=== PATIENT | male | born 1970 | race Caucasian/White ===

== ENCOUNTER 2020-12-13 01:19 | Inpatient (IN) | payer OTHER ==
[2020-12-13 02:03] LABS: Basophils % (A) 1 %; Eosinophils % (A) 1 %; HCT 43.2 % (39.0-53.0); HGB 15.5 gm/dL (13.0-17.5); Hyperchromasia Slight; Lymphocytes # (A) 0.6 k/uL (1.0-4.8); Lymphocytes % (A) 12 %; MCH 29.4 pg (25.0-35.0); MCHC 35.8 g/dL (31.0-37.0); Mean Platelet Volume 7.8; Monocytes # (A) 0.3 k/uL (0-1.0); Monocytes % (A) 5 %; Neutrophils # (A) 4.1 k/uL (1.3-7.7); Neutrophils % (A) 79 %; Platelet Count 200 k/uL (150-450); RBC 5.27 m/uL (4.30-5.90); WBC 5.1 k/uL (3.8-10.6)
[2020-12-13 02:12] LABS: INR 1.1 (<1.2); Partial Thromboplastin Time 26.9 sec (22.0-30.0); Prothrombin Time 11.2 sec (9.0-12.0)
[2020-12-13 02:25] LABS: ALT 51 U/L (4-49); AST 79 U/L (17-59); African American GFR (CKD) >90 (>60 ml/min/1.73 sqM); Alkaline Phosphatase 71 U/L (38-126); Anion Gap 12 mmol/L; Blood Urea Nitrogen 20 mg/dL (9-20); Carbon Dioxide 24 mmol/L (22-30); Chloride 97 mmol/L (98-107); Glucose 106 mg/dL (74-99); LDH 971 U/L (313-618); Magnesium 2.2 mg/dL (1.6-2.3); Non-African American GFR(CKD) >90 (>60 ml/min/1.73 sqM); Potassium 3.7 mmol/L (3.5-5.1); Sodium 133 mmol/L (137-145); Total Bilirubin 1.2 mg/dL (0.2-1.3); Total Protein 7.2 g/dL (6.3-8.2)
--- NOTE | 2020-12-13 02:29 | XR ---
EXAMINATION TYPE: XR chest 1V portable DATE OF EXAM: 12/13/2020 COMPARISON: NONE HISTORY: Pneumonia TECHNIQUE: 2 views FINDINGS: Portable exam shows some coarse predominantly interstitial infiltrate in both lungs. Exam l imited by patient's size. There is no definite heart failure. I see no pleural effusion. IMPRESSION: There is some mild pulmonary interstitial infiltrates.
--- NOTE | 2020-12-13 02:38 | ED ---
General Adult HPI - General Chief complaint: Upper Respiratory Infection Stated complaint: SOB Time Seen by Provider: 12/13/20 01:32 Source: patient, EMS Mode of arrival: EMS Limitations: no limitations - History of Present Illness Initial comments: Patient is a 50-year-old male with history of diabetes, hypertension, bilateral PEs, presenting to the emergency Department with complaints of worsening Covid infection. He states he is been having cold symptoms for the last 11 days. He states his sons also had an infection. He feels like he is getting worse and not better. He has been battling fevers over the past 3-4 days. He states he is feeling more shortness of breath with exertion, feels like his heart is racing at times. He does have history of bilateral PEs in 2018, he is on eliquis. He does admit to some mild nausea, some intermittent diarrhea as well. He states he feels like all he wants to do is lay in bed. His last dose of Ty lenol was a few hours ago. He has no history of asthma COPD. Denies any abdominal pain, no chest pain at this time. He has no further complaints. Upon arrival to the ER, he is 92-94% on room air, slightly tachycardia at 102, rest of vitals normal. - Related Data Home Medications Medication Instructions Recorded Confirmed Albuterol Sulfate [Ventolin HFA] 2 puff INHALATION RT-Q4H PRN 12/13/20 12/13/20 Apixaban [Eliquis] 5 mg PO BID 12/13/20 12/13/20 Bisoprolol Fumarate [Zebeta] 10 mg PO DAILY 12/13/20 12/13/20 Candesartan Cilexetil [Atacand] 32 mg PO DAILY 12/13/20 12/13/20 Empagliflozin/Metformin HCl 1 tab PO BID 12/13/20 12/13/20 [Synjardy Xr 25-1,000 mg Tablet] Fluticasone/Vilanterol [Breo 1 puff INHALATION RT-DAILY 12/13/20 12/13/20 Ellipta 200-25 Mcg INH] Furosemide [Lasix] 120 mg PO DAILY 12/13/20 12/13/20 Levothyroxine Sodium [Synthroid] 112 mcg PO DAILY 12/13/20 12/13/20 RABEprazole SODIUM 20 mg PO DAILY 12/13/20 12/13/20 Rosuvastatin [Crestor] 10 mg PO DAILY 12/13/20 12/13/20 Spironolactone 25 mg PO DAILY 12/13/20 12/13/20 Terazosin HCl 10 mg PO BID 12/13/20 12/13/20 Allergies Allergy/AdvReac Type Severity Reaction Status Date / Time No Known Allergies Allergy Verified 12/13/20 07:27 Review of Systems ROS Statement: Those systems with pertinent positive or pertinent negative responses have been documented in the HPI. ROS Other: All systems not noted in ROS Statement are negative. Past Medical History Past Medical History: Diabetes Mellitus, Hypertension, Pneumonia Additional Past Medical History / Comment(s): emboli History of Any Multi-Drug Resistant Organisms: None Reported Past Surgical History: Orthopedic Surgery Past Psychological History: No Psychological Hx Reported Smoking Status: Never smoker Past Alcohol Use History: Occasional Past Drug Use History: None Reported - Past Family History Father Family Medical History: Hyperlipidemia General Exam - General Exam Comments Initial Comments: GENERAL: Patient is well-developed and well-nourished. Patient is nontoxic and in no acute distress. HEAD: Atraumatic, normocephalic. EYES: Pupils equal round and reactive to light, extraocular movements intact, sclera anicteric, conjunctiva are normal. Eyelids were unremarkable. ENT: TMs normal, nares patent, oropharynx clear without exudates. Moist mucous membranes. NECK: Normal range of motion, supple without lymphadenopathy or JVD. LUNGS: Unlabored respirations. Breath sounds clear to auscultation bilaterally and equal. No wheezes rales or rhonchi. HEART: Tachycardia rate and rhythm without murmurs, rubs or gallops. ABDOMEN: Soft, nontender, normoactive bowel sounds. No guarding, no rebound. No masses appreciated. : Deferred MUSCULOSKELETAL: Normal extremities with adequate strength and normal range of motion, no pitting or edema. No clubbing or cyanosis. NEUROLOGICAL: Patient is alert and oriented x 3. Motor and sensory are also intact. Cranial nerves II through XII grossly intact. Symmetrical smile. Normal speech, normal gait. PSYCH: Normal mood, normal affect. SKIN: Warm, Dry, normal turgor, no rashes or lesions noted. Limitations: no limitations Course Vital Signs 12/13/20 12/13/20 12/13/20 01:21 03:22 04:17 Temperature 97.7 F 100.5 F H Pulse Rate 102 H 88 90 Respiratory 22 20 20 Rate Blood Pressure 121/82 110/78 107/80 O2 Sat by Pulse 94 L 98 94 L Oximetry 12/13/20 12/13/20 12/13/20 06:25 09:00 12:47 Temperature 99 F 98.0 F 98.7 F Pulse Rate 88 90 87 Respiratory 20 18 20 Rate Blood Pressure 106/65 121/81 116/80 O2 Sat by Pulse 95 96 94 L Oximetry EKG Findings - EKG Comments: EKG Findings:: A. fib with PVCs, no signs of acute ST segment elevation. Ventricular rate 98, QRS duration 94, QT 368. Medical Decision Making - Medical Decision Making Patient is a 50-year-old male with history of diabetes, hypertension, PEs, presenting for worsening shortness of breath over the last few days. He is currently on day 11 of having Covid. Oximetry on room air satting at 92-94%, is currently on 2 L. EKG today shows A. fib, he has no history of this. He states he recently had a full cardiac workup with no other abnormalities. Labs are showing a normal white count, lactic acid normal, LDH is 971, BNP is 284. X-ray as showing a bilateral mild pulmonary interstitial infiltrates. Patient will be admitted for new-onset A. fib, Covid hypoxia. Patient's accepted by Dr. Zarco, consult to pulmonology. Case discussed with Dr. Kaur. - Lab Data Result diagrams: 12/13/20 01:50 12/13/20 05:50 Lab Results 12/13/20 12/13/20 12/13/20 Range/Units 01:50 01:50 01:50 WBC 5.1 (3.8-10.6) k/uL RBC 5.27 (4.30-5.90) m/uL Hgb 15.5 (13.0-17.5) gm/dL Hct 43.2 (39.0-53.0) % MCV 82.0 (80.0-100.0) fL MCH 29.4 (25.0-35.0) pg MCHC 35.8 (31.0-37.0) g/dL RDW 14.0 (11.5-15.5) % Plt Count 200 (150-450) k/uL MPV 7.8 Neutrophils % 79 % Lymphocytes % 12 % Monocytes % 5 % Eosinophils % 1 % Basophils % 1 % Neutrophils # 4.1 (1.3-7.7) k/uL Lymphocytes # 0.6 L (1.0-4.8) k/uL Monocytes # 0.3 (0-1.0) k/uL Eosinophils # 0.0 (0-0.7) k/uL Basophils # 0.0 (0-0.2) k/uL Hyperchromasia Slight PT 11.2 (9.0-12.0) sec INR 1.1 (<1.2) APTT 26.9 (22.0-30.0) sec Sodium 133 L (137-145) mmol/L Potassium 3.7 (3.5-5.1) mmol/L Chloride 97 L (98-107) mmol/L Carbon Dioxide 24 (22-30) mmol/L Anion Gap 12 mmol/L BUN 20 (9-20) mg/dL Creatinine 0.78 (0.66-1.25) mg/dL Est GFR (CKD-EPI)AfAm >90 (>60 ml/min/1.73 sqM) Est GFR (CKD-EPI)NonAf >90 (>60 ml/min/1.73 sqM) Glucose 106 H (74-99) mg/dL Plasma Lactic Acid Talha (0.7-2.0) mmol/L Calcium 9.0 (8.4-10.2) mg/dL Magnesium 2.2 (1.6-2.3) mg/dL Total Bilirubin 1.2 (0.2-1.3) mg/dL AST 79 H (17-59) U/L ALT 51 H (4-49) U/L Alkaline Phosphatase 71 (38-126) U/L Lactate Dehydrogenase 971 H (313-618) U/L Troponin I (0.000-0.034) ng/mL C-Reactive Protein 4.1 H (<1.0) mg/dL NT-Pro-B Natriuret Pep pg/mL Total Protein 7.2 (6.3-8.2) g/dL Albumin 4.0 (3.5-5.0) g/dL 12/13/20 12/13/2012/13/21 Range/Units 01:50 01:50 02:51 WBC (3.8-10.6) k/uL RBC (4.30-5.90) m/uL Hgb (13.0-17.5) gm/dL Hct (39.0-53.0) % MCV (80.0-100.0) fL MCH (25.0-35.0) pg MCHC (31.0-37.0) g/dL RDW (11.5-15.5) % Plt Count (150-450) k/uL MPV Neutrophils % % Lymphocytes % % Monocytes % % Eosinophils % % Basophils % % Neutrophils # (1.3-7.7) k/uL Lymphocytes # (1.0-4.8) k/uL Monocytes # (0-1.0) k/uL Eosinophils # (0-0.7) k/uL Basophils # (0-0.2) k/uL Hyperchromasia PT (9.0-12.0) sec INR (<1.2) APTT (22.0-30.0) sec Sodium (137-145) mmol/L Potassium (3.5-5.1) mmol/L Chloride (98-107) mmol/L Carbon Dioxide (22-30) mmol/L Anion Gap mmol/L BUN (9-20) mg/dL Creatinine (0.66-1.25) mg/dL Est GFR (CKD-EPI)AfAm (>60 ml/min/1.73 sqM) Est GFR (CKD-EPI)NonAf (>60 ml/min/1.73 sqM) Glucose (74-99) mg/dL Plasma Lactic Acid Talha 1.2 (0.7-2.0) mmol/L Calcium (8.4-10.2) mg/dL Magnesium (1.6-2.3) mg/dL Total Bilirubin (0.2-1.3) mg/dL AST (17-59) U/L ALT (4-49) U/L Alkaline Phosphatase (38-126) U/L Lactate Dehydrogenase (313-618) U/L Troponin I 0.018 (0.000-0.034) ng/mL C-Reactive Protein (<1.0) mg/dL NT-Pro-B Natriuret Pep 284 pg/mL Total Protein (6.3-8.2) g/dL Albumin (3.5-5.0) g/dL Disposition Clinical Impression: COVID-19, Hypoxia, New onset a-fib Disposition: ADMITTED IP TO THIS HOSP Condition: Stable Decision Date: 12/13/20 Decision Time: 02:56
--- NOTE | 2020-12-13 02:54 | P.HPIM ---
History of Present Illness H&P Date: 12/13/20 The patient is a 50-year-old male with a PMH of bilateral PEs on Eliquis, obstructive sleep apnea on CPAP, spinal stenosis with left foot drop, type II DM, and hypertension who presented to the emergency room with complaints of worsening COVID-19 infection. Patient reports that his symptoms started at 11- 12 days ago and that him and his son were diagnosed roughly 7-8 days ago at a local [facility]. The patient is on vaccinated. He notes that his symptoms of decreased exercise tolerance, palpitations, myalgias, malaise, headaches and hypoxia gradually been worsening. The patient has a pulse oximeter at home and notes that his resting SpO2 levels have gone as low as 90%. He also states int ermittent fevers over the past 3-4 days. He further reports nausea and diarrhea. He denied chest pain, abdominal pain, weakness, numbness, tingling. In the emergency room, chest x-ray showed findings consistent with COVID-19 pneumonia. Laboratory evaluation was remarkable for sodium of 133, chloride 97, glucose 106, AST 79, ALT 51, and LDH 971. Review of systems: Pertinent positives and negatives as discussed in HPI, a complete review of systems was performed and all other systems are negative. Physical examination: General: non toxic, no distress, appears older than stated age, morbidly obese Derm: no unusual rashes/lesions no unusual ecchymoses, warm, dry Head: atraumatic, normocephalic, symmetric Eyes: EOMI, no lid lag, anicteric sclera, pupils equal round reactive to light ENT: Nose and ears atraumatic, no thrush, no pharyngeal erythema Neck: No thyromegaly, no cervical lymphadenopathy, trachea midline, supple Mouth: no lip lesion, mucus membranes moist Cardiovascular: S1S2 reg, no murmur, positive posterior tibial pulse bilateral, no edema, capillary refill less than 2 seconds Lungs: Diffuse bilateral rhonchi, no wheezing or rales appreciated , no accessory muscle use Abdominal: soft, nontender to palpation, no guarding, no appreciable organomegaly, normal bowel sounds Ext: no gross muscle atrophy, muscle strength 5 out of 5 in all 4 extremities grossly septic left lower extremity ankle strength 2 out of 5, no contractures, left ankle brace in place Neuro: CN II-XI grossly intact, light touch intact all 4 extremities, finger to nose within normal limits, Psych: Alert, oriented, appropriate affect Assessment/plan COVID-19 pneumonitis with acute hypoxic respiratory failure -Supplemental oxygen -Dexamethasone -Vitamin C, vitamin D, zinc -Pulmonary consult Abnormal LFTs -Likely due to COVID-19 -Monitor for now Chronic conditions: Obstructive sleep apnea, bilateral PEs, type II DM, hypertension -Continue with home CPAP -Lispro insulin sliding scale, blood glucose monitoring -Check A1c -Continue with home Eliquis DVT prophylaxis -Eliquis The patient is admitted with an anticipated greater than 2 midnight stay for evaluation of COVID-19 CODE STATUS: Full Code Discussed with: Patient Anticipated discharge date: 2-[address]: Home Past Medical History Past Medical History: Diabetes Mellitus, Hypertension, Pneumonia Additional Past Medical History / Comment(s): emboli History of Any Multi-Drug Resistant Organisms: None Reported Past Surgical History: Orthopedic Surgery Past Psychological History: No Psychological Hx Reported Smoking Status: Never smoker Past Alcohol Use History: Occasional Past Drug Use History: None Reported - Past Family History Father Family Medical History: Hyperlipidemia Medications and Allergies Allergies Allergy/AdvReac Type Severity Reaction Status Date / Time No Known Allergies Allergy Verified 12/13/20 01:28 Physical Exam Vitals: Vital Signs Temp Pulse Resp BP Pulse Ox 12/13/20 01:21 97.7 F 102 H 22 121/82 94 L Intake and Output 12/12/20 12/12/20 12/13/20 14:59 22:59 06:59 Other: Weight 145.15 kg Results CBC & Chem 7: 12/13/20 01:50 12/13/20 01:50 Labs: Abnormal Lab Results - Last 24 Hours (Table) 12/13/20 12/13/20 Range/Units 01:50 01:50 Lymphocytes # 0.6 L (1.0-4.8) k/uL Sodium 133 L (137-145) mmol/L Chloride 97 L (98-107) mmol/L Glucose 106 H (74-99) mg/dL AST 79 H (17-59) U/L ALT 51 H (4-49) U/L Lactate Dehydrogenase 971 H (313-618) U/L
[2020-12-13] MEDS ORDERED: ONDANSETRON 4 MG/2 ML VIAL IVP PRN (02:55)
[2020-12-13] MEDS ORDERED: ACETAMINOPHEN TAB 325 MG TAB PO PRN (02:55)
[2020-12-13 02:58] LABS: C Reactive Protein 4.1 mg/dL (<1.0)
[2020-12-13] MEDS ORDERED: SODIUM CHLORIDE 0.9% 1,000 ML IV SCH (03:00)
[2020-12-13] MEDS: dexAMETHasone 2 MG TAB PO SCH ×2 (04:19→09:12)
[2020-12-13 06:59] LABS: ALT 47 U/L (4-49); AST 70 U/L (17-59); African American GFR (CKD) >90 (>60 ml/min/1.73 sqM); Albumin 3.7 g/dL (3.5-5.0); Alkaline Phosphatase 62 U/L (38-126); Anion Gap 11 mmol/L; Blood Urea Nitrogen 21 mg/dL (9-20); Calcium 8.8 mg/dL (8.4-10.2); Carbon Dioxide 26 mmol/L (22-30); Chloride 97 mmol/L (98-107); Glucose 103 mg/dL (74-99); Non-African American GFR(CKD) 85 (>60 ml/min/1.73 sqM); Potassium 3.5 mmol/L (3.5-5.1); Sodium 134 mmol/L (137-145); Total Bilirubin 1.1 mg/dL (0.2-1.3); Total Protein 6.7 g/dL (6.3-8.2)
[2020-12-13] MEDS ORDERED: ALBUTEROL HFA INHALER INHALATION PRN (07:43)
[2020-12-13] MEDS: SYMBICORT 160-4.5 MCG INHALER INHALATION SCH ×2 (07:59→20:01)
[2020-12-13] MEDS: INSULIN ASPART (NovoLOG) 100 UNIT/ML VIAL SQ SCH ×4 (09:07→20:29)
[2020-12-13 09:08] LABS: Glucose,Whole Blood 120 mg/dL (75-99)
[2020-12-13] MEDS: PANTOPRAZOLE 40 MG TABLET PO SCH (09:12)
[2020-12-13] MEDS: CHOLECALCIFEROL 25 MCG (1000 IU) TABLET PO SCH (09:12)
[2020-12-13] MEDS: DOXAZOSIN 4 MG TAB PO SCH ×2 (09:12→20:29)
[2020-12-13] MEDS: BISOPROLOL 5 MG TAB PO SCH (09:12)
[2020-12-13] MEDS: ASCORBIC ACID 500 MG TAB PO SCH (09:12)
[2020-12-13] MEDS: ZINC SULFATE 220 MG CAP PO SCH (09:12)
[2020-12-13] MEDS: ATORVASTATIN 20 MG TAB PO SCH (09:12)
[2020-12-13] MEDS: APIXABAN 5 MG TAB PO SCH ×2 (09:12→20:29)
[2020-12-13] MEDS: LEVOTHYROXINE 112 MCG TAB PO SCH (09:28)
--- NOTE | 2020-12-13 11:50 | P.CNPUL ---
History of Present Illness Consult date: 12/13/20 Requesting physician: Anju Zarco Reason for consult: dyspnea, cough, hypoxemia, pneumonia, abnormal CXR/CT Chief complaint: COVID-19 pneumonia History of present illness: This is a 50-year-old male patient with past medical history of diabetes mellitus type 2, hypertension, history of bilateral PEs on Eliquis, presented to the emergency department on 12/13/2020 for evaluation of shortness of breath, palpitations, fever, body aches, intermittent diarrhea and mild nausea. Patient was diagnosed with COVID 19. The onset of symptoms was 12 days ago. His son was diagnosed with COVID 19. Patient states his symptoms were progressively worse and not better. He has been battling a fever over the past 3-4 days. He feels more short of breath with exertion. He states he feels like all he wants to do is lay in bed. Patient lives in [facility], but he is a citizen, and owns a vacation property in [facility], where he was vacationing. Patient did not receive COVID-19 vaccine. On arrival to the emergency department his O2 sat is 92-94%. His chest x-ray shows some mild pulmonary interstitial infiltrates. Does have history of obstructive sleep apnea for which he wears a CPAP. His lab work showed normal white count of 5.1, hemoglobin of 15.5, lymphocyte count of 0.6, d-dimer was 0.76, sodium is 133, potassium is 3.7, chloride is 97, CO2 is 24, B1 is 20, creatinine 0.78, lactic acid was 1.2, AST was 79, ALT was 51, alkaline phosphatase was 71, troponin was 0.018, CRP was 4.1, proBNP was 284. Patient was started on Decadron 6 mg daily, vitamins C, D, and zinc. He is already on maintenance dose Eliquis 5 mg daily, he is on Ventolin and Symbicort, and he is receiving IV fluids at 75 ML per hour. Have a low-grade fever this morning with a temp of 100.5F, blood pressure stable, he is currently on his home CPAP, when he is on nasal cannula he is requiring 2 L of oxygen and his pulse ox is 94%. He denies any chest discomfort. Review of Systems All systems: negative Constitutional: Reports fever, Denies chills Eyes: denies blurred vision, denies pain Ears, nose, mouth and throat: Denies headache, Denies sore throat Cardiovascular: Denies chest pain, Denies shortness of breath Respiratory: Reports dyspnea, Denies cough Gastrointestinal: Reports nausea, Denies abdominal pain, Denies diarrhea, Denies vomiting Musculoskeletal: Denies myalgias Integumentary: Denies pruritus, Denies rash Neurological: Denies numbness, Denies weakness Psychiatric: Denies anxiety, Denies depression Endocrine: Denies fatigue, Denies weight change Past Medical History Past Medical History: Diabetes Mellitus, Hypertension, Pneumonia Additional Past Medical History / Comment(s): emboli History of Any Multi-Drug Resistant Organisms: None Reported Past Surgical History: Orthopedic Surgery Past Psychological History: No Psychological Hx Reported Smoking Status: Never smoker Past Alcohol Use History: Occasional Past Drug Use History: None Reported - Past Family History Father Family Medical History: Hyperlipidemia Medications and Allergies Home Medications Medication Instructions Recorded Confirmed Type Albuterol Sulfate [Ventolin HFA] 2 puff INHALATION RT-Q4H PRN 12/13/20 12/13/20 History Apixaban [Eliquis] 5 mg PO BID 12/13/20 12/13/20 History Bisoprolol Fumarate [Zebeta] 10 mg PO DAILY 12/13/20 12/13/20 History Candesartan Cilexetil [Atacand] 32 mg PO DAILY 12/13/20 12/13/20 History Empagliflozin/Metformin HCl 1 tab PO BID 12/13/20 12/13/20 History [Synjardy Xr 25-1,000 mg Tablet] Fluticasone/Vilanterol [Breo 1 puff INHALATION RT-DAILY 12/13/20 12/13/20 History Ellipta 200-25 Mcg INH] Furosemide [Lasix] 120 mg PO DAILY 12/13/20 12/13/20 History Levothyroxine Sodium [Synthroid] 112 mcg PO DAILY 12/13/20 12/13/20 History RABEprazole SODIUM 20 mg PO DAILY 12/13/20 12/13/20 History Rosuvastatin [Crestor] 10 mg PO DAILY 12/13/20 12/13/20 History Spironolactone 25 mg PO DAILY 12/13/20 12/13/20 History Terazosin HCl 10 mg PO BID 12/13/20 12/13/20 History Allergies Allergy/AdvReac Type Severity Reaction Status Date / Time No Known Allergies Allergy Verified 12/13/20 07:27 Physical Exam Vitals: Vital Signs Temp Pulse Resp BP Pulse Ox 12/13/20 09:00 98.0 F 90 18 121/81 96 12/13/20 06:25 99 F 88 20 106/65 95 12/13/20 04:17 100.5 F H 90 20 107/80 94 L 12/13/20 03:22 88 20 110/78 98 12/13/20 01:21 97.7 F 102 H 22 121/82 94 L Intake and Output 12/12/20 12/13/20 12/13/20 22:59 06:59 14:59 Other: Weight 145.15 kg GENERAL EXAM: Alert, very pleasant, 50-year-old white male, on CPAP, comfortable in no apparent distress. HEAD: Normocephalic/atraumatic. EYES: Normal reaction of pupils, equal size. Conjunctiva pink, sclera white. NOSE: Clear with pink turbinates. THROAT: No erythema or exudates. NECK: No masses, no JVD, no thyroid enlargement, no adenopathy. CHEST: No chest wall deformity. Symmetrical expansion. LUNGS: Equal air entry with no crackles, wheeze, rhonchi or dullness. CVS: Regular rate and rhythm, normal S1 and S2, no gallops, no murmurs, no rubs ABDOMEN: Soft, nontender. No hepatosplenomegaly, normal bowel sounds, no guarding or rigidity. EXTREMITIES: No clubbing, no edema, no cyanosis, 2+ pulses and upper and lower extremities. MUSCULOSKELETAL: Muscle strength and tone normal. SPINE: No scoliosis or deformity SKIN: No rashes CENTRAL NERVOUS SYSTEM: Alert and oriented -3. No focal deficits, tone is normal in all 4 extremities. PSYCHIATRIC: Alert and oriented -3. Appropriate affect. Intact judgment and insight. Results - Laboratory Findings CBC and BMP: 12/13/20 01:50 12/13/20 05:50 PT/INR, D-dimer PT 11.2 sec (9.0-12.0) 12/13/20 01:50 INR 1.1 (<1.2) 12/13/20 01:50 D-Dimer 0.76 mg/L FEU (<0.60) H 12/13/20 09:06 Abnormal lab findings: Abnormal Labs 12/13/20 12/13/20 12/13/20 01:50 01:50 05:50 Lymphocytes # 0.6 L D-Dimer Sodium 133 L 134 L Chloride 97 L 97 L BUN 21 H Glucose 106 H 103 H POC Glucose (mg/dL) AST 79 H 70 H ALT 51 H Lactate Dehydrogenase 971 H C-Reactive Protein 4.1 H 12/13/20 12/13/20 09:06 09:06 Lymphocytes # D-Dimer 0.76 H Sodium Chloride BUN Glucose POC Glucose (mg/dL) 120 H AST ALT Lactate Dehydrogenase C-Reactive Protein - Diagnostic Findings Chest x-ray: report reviewed, image reviewed Additional studies: EKG reviewed Assessment and Plan Plan: Assessment: #1. Acute hypoxic respiratory failure related to COVID-19 pneumonia, onset of symptoms was 12 days prior to presentation to the emergency department. Out of the window for Remdesivir. Currently on Decadron, on home dose Eliquis, and vitamin C, D and zinc. Patient is not vaccinated for COVID-19 #2. History of diabetes mellitus type 2 #3. Morbid obesity with BMI of 43.4 kg/m #4. History of bilateral PEs on Eliquis #5. Obstructive sleep apnea on CPAP #6. Spinal stenosis with left foot drop #7. Hypertension #8. Lifetime nonsmoker Plan: Continue Decadron 6 mg daily Continue vitamins Continue home dose Eliquis Patient is using his home CPAP Patient is out of the window for Remdesivir We'll continue to follow his clinical course Continue supportive treatment, continue monitoring for worsening dyspnea or hypoxia I performed a history & physical examination of the patient and discussed their management with my nurse practitioner, Shira Zhao. I reviewed the nurse pr actitioner's note and agree with the documented findings and plan of care. Lung sounds are positive for diminished breath sounbds throughout the lung [place]. The findings and the impression was discussed with the patient. I attest to the documentation by the nurse practitioner. Time with Patient: Greater than 30
[2020-12-13 12:09] LABS: Ferritin 1504.2 ng/mL (22.0-322.0)
[2020-12-13 12:35] LABS: Glucose,Whole Blood 114 mg/dL (75-99)
--- NOTE | 2020-12-13 13:40 | P.PN ---
Progress Note - Text Progress Note Date: 12/13/20 I reviewed patient's labs from this morning. There is a slight increase in creatinine. We'll hold his BUD inhibitor, Lasix and spironolactone. We'll monitor patient closely for volume overload. Patient currently satting well on 2 L nasal cannula. Pulmonology patient is out of the window for remdesivir.
[2020-12-13 15:27] LABS: Hemoglobin A1C 6.5 % (4.0-6.0)
[2020-12-13 17:32] LABS: Glucose,Whole Blood 111 mg/dL (75-99)
[2020-12-13 20:26] VITALS: PULSE 88
[2020-12-13 20:30] LABS: Glucose,Whole Blood 182 mg/dL (75-99)
[2020-12-13] MEDS ORDERED: MELATONIN 5 MG TABLET PO SCH (21:00)
[2020-12-14 06:10] LABS: ALT 47 U/L (4-49); AST 51 U/L (17-59); African American GFR (CKD) >90 (>60 ml/min/1.73 sqM); Albumin 3.7 g/dL (3.5-5.0); Albumin/Globulin Ratio 1.2; Alkaline Phosphatase 60 U/L (38-126); Anion Gap 8 mmol/L; Blood Urea Nitrogen 23 mg/dL (9-20); Calcium 9.3 mg/dL (8.4-10.2); Carbon Dioxide 28 mmol/L (22-30); Chloride 100 mmol/L (98-107); Glucose 130 mg/dL (74-99); Non-African American GFR(CKD) >90 (>60 ml/min/1.73 sqM); Potassium 3.8 mmol/L (3.5-5.1); Sodium 136 mmol/L (137-145); Total Bilirubin 0.6 mg/dL (0.2-1.3); Total Protein 6.7 g/dL (6.3-8.2)
[2020-12-14] MEDS: LEVOTHYROXINE 112 MCG TAB PO SCH (06:21)
[2020-12-14 08:22] LABS: Glucose,Whole Blood 134 mg/dL (75-99)
[2020-12-14 08:25] VITALS: BP 120/90; RESP 17; TEMP 97.4
[2020-12-14] MEDS: APIXABAN 5 MG TAB PO SCH (08:27)
[2020-12-14] MEDS: DOXAZOSIN 4 MG TAB PO SCH (08:27)
[2020-12-14] MEDS: ASCORBIC ACID 500 MG TAB PO SCH (08:27)
[2020-12-14] MEDS: dexAMETHasone 2 MG TAB PO SCH (08:27)
[2020-12-14] MEDS: CHOLECALCIFEROL 25 MCG (1000 IU) TABLET PO SCH (08:28)
[2020-12-14] MEDS: ATORVASTATIN 20 MG TAB PO SCH (08:32)
[2020-12-14] MEDS: PANTOPRAZOLE 40 MG TABLET PO SCH (08:32)
[2020-12-14] MEDS: INSULIN ASPART (NovoLOG) 100 UNIT/ML VIAL SQ SCH (08:32)
[2020-12-14] MEDS: BISOPROLOL 5 MG TAB PO SCH (08:35)
[2020-12-14] MEDS: SYMBICORT 160-4.5 MCG INHALER INHALATION SCH (08:52)
[2020-12-14] MEDS: ZINC SULFATE 220 MG CAP PO SCH (09:26)
--- NOTE | 2020-12-14 10:49 | P.DS ---
Providers Date of admission: 12/13/20 04:24 Expected date of discharge: 12/14/20 Attending physician: Anju Zarco MD Consults: 12/13/20 02:50 Consult Physician Urgent Consulting Provider: Clement Martinez Consult Reason/Comments: COVID Do you want consulting provider notified?: Yes Primary care physician: Stated None Hospital Course: Discharge Diagnosis: COVID-19 pneumonitis Acute respiratory failure with hypoxia, resolved Elevated LFTs, resolved Obstructive sleep apnea CPAP dependent nightly History of bilateral pulmonary emboli on anticoagulation with Eliquis Type II oub-xagrwda-mdzkigjzz diabetes mellitus Hypertension Hyperlipidemia Hospital Course: Patient is a 50-year-old male with a past medical history of atrial fibrillation and bilateral PEs currently on anticoagulation with Eliquis, CADENCE CPAP dependent nightly, type II opr-lbjdnck-ypcuuakrh diabetes mellitus, hypertension, and hyperlipidemia. He presented to the hospital on 12/13/20 with a chief complaint of shortness of breath, fatigue, myalgias, and headache status post reportedly being diagnosed with Covid 19 virus infection on 12/17/20 at [facility]. Patient was admitted with acute respiratory failure with hypoxia secondary to Covid 19 pneumonitis and was started on dexamethasone, zinc, noah min D, vitamin C, and melatonin. A chest x-ray was completed revealing mild pulmonary interstitial infiltrates. EKG completed showing atrial fibrillation at 98 bpm. Consultation was placed to enrobing machine operator in which patient was seen and fully evaluated by. Patient's condition improved, he is no longer requiring oxygen supplementation. Resting oxygen saturations on room air is 98% and ambulatory pulse ox 93-94% on room air. Patient reports feeling much better then he did upon arrival. Patient is stable for discharge home at this time. He was instructed to to follow-up with PCP in 1-2 days and enrobing machine operator in 1 week. Patient being discharged home on Decadron, melatonin, zinc, vitamin C, and vitamin D. Patient was also provided with a refill for his rescue inhaler and encouraged to continue use of incentive spirometry upon discharge. Patient is stable for discharge home at this time. Patient seen and examined at bedside. He was resting comfortably sitting up on edge of bed watching movie on iPAD. He was on room air with respirations even, regular, and unlabored. Pulse ox was 98% at rest. Patient showing no signs of acute distress at this time. He reports feeling much better than he felt upon arrival. He's been afebrile >24 hours vital signs have been stable. Patient denies having any headache, lightheadedness, dizziness, chest pain, palpitations, or feeling short of breath. Vital signs reviewed and stable. General: Nontoxic, no distress and appears stated age. Derm: Skin warm and dry, normal coloration for ethnicity. Head: Atraumatic, normocephalic and symmetric. Eyes: EOMs intact, no lid lag, and anicteric sclera Mouth: no lip lesions, mucus membranes moist Cardiovascular: regular rate and rhythm with normal S1S2, no murmur, positive posterior tibial pulses bilaterally, and cap refill < 2 seconds. Lungs: Respirations even, regular, and unlabored on room air. Lungs CTA bilaterally, no rhonchi, no rales, no wheezing, and no accessory muscle usage. Abdominal: soft, nontender to palpation, no guarding, no appreciable organomegaly Ext: ROM intact. No gross muscle atrophy, no edema, no contractures Neuro: Speech clear, face symmetrical and CN II-XII grossly intact with no noted focal neuro deficits Psych: Alert and oriented to person, place, time, and situation. Appropriate and pleasant affect. A total of 45 minutes of time were spent preparing this complex discharge summary. . Patient Condition at Discharge: Stable Plan - Discharge Summary Discharge Rx Participant: No New Discharge Prescriptions: New Zinc Sulfate [Orazinc] 220 mg PO DAILY 30 Days #30 cap dexAMETHasone ORAL [Hexadrol] 6 mg PO DAILY 7 Days #21 tab Melatonin 5 mg PO HS 30 Days #30 tablet Ascorbic Acid [Vitamin C] 1,000 mg PO DAILY 30 Days #30 tab Cholecalciferol [Vitamin D3 (25 Mcg = 1000 Iu)] 125 mcg PO DAILY 30 Days #30 tablet Continue RABEprazole SODIUM 20 mg PO DAILY Apixaban [Eliquis] 5 mg PO BID Levothyroxine Sodium [Synthroid] 112 mcg PO DAILY Rosuvastatin [Crestor] 10 mg PO DAILY Furosemide [Lasix] 120 mg PO DAILY Empagliflozin/Metformin HCl [Synjardy Xr 25-1,000 mg Tablet] 1 tab PO BID Terazosin HCl 10 mg PO BID Fluticasone/Vilanterol [Breo Ellipta 200-25 Mcg INH] 1 puff INHALATION RT- DAILY Candesartan Cilexetil [Atacand] 32 mg PO DAILY Bisoprolol Fumarate [Zebeta] 10 mg PO DAILY Spironolactone 25 mg PO DAILY Albuterol Sulfate [Ventolin HFA] 2 puff INHALATION RT-Q4H PRN #1 inhaler PRN Reason: Shortness Of Breath Discharge Medication List Apixaban [Eliquis] 5 mg PO BID 12/13/20 [History] Bisoprolol Fumarate [Zebeta] 10 mg PO DAILY 12/13/20 [History] Candesartan Cilexetil [Atacand] 32 mg PO DAILY 12/13/20 [History] Empagliflozin/Metformin HCl [Synjardy Xr 25-1,000 mg Tablet] 1 tab PO BID 12/13/20 [History] Fluticasone/Vilanterol [Breo Ellipta 200-25 Mcg INH] 1 puff INHALATION RT-DAILY 12/13/20 [History] Furosemide [Lasix] 120 mg PO DAILY 12/13/20 [History] Levothyroxine Sodium [Synthroid] 112 mcg PO DAILY 12/13/20 [History] RABEprazole SODIUM 20 mg PO DAILY 12/13/20 [History] Rosuvastatin [Crestor] 10 mg PO DAILY 12/13/20 [History] Spironolactone 25 mg PO DAILY 12/13/20 [History] Terazosin HCl 10 mg PO BID 12/13/20 [History] Albuterol Sulfate [Ventolin HFA] 2 puff INHALATION RT-Q4H PRN #1 inhaler 12/14/20 [Rx] Ascorbic Acid [Vitamin C] 1,000 mg PO DAILY 30 Days #30 tab 12/14/20 [Rx] Cholecalciferol [Vitamin D3 (25 Mcg = 1000 Iu)] 125 mcg PO DAILY 30 Days #30 tablet 12/14/20 [Rx] Melatonin 5 mg PO HS 30 Days #30 tablet 12/14/20 [Rx] Zinc Sulfate [Orazinc] 220 mg PO DAILY 30 Days #30 cap 12/14/20 [Rx] dexAMETHasone ORAL [Hexadrol] 6 mg PO DAILY 7 Days #21 tab 12/14/20 [Rx] Follow up Appointment(s)/Referral(s): Clement Martinez MD [STAFF PHYSICIAN] - 1 Week Carlos Benson [STAFF PHYSICIAN] - 1-2 Days Patient Instructions/Handouts: Coronavirus Disease 2019 (COVID-19) Activity/Diet/Wound Care/Special Instructions: Activity: As tolerated Diet: Heart healthy and carb consistent diet. Special Instructions: Take medications as directed without missing any doses. Please continue to use incentive spirometry. Thank you for allowing us to participate in your care, it was a pleasure having you for our patient.
[2020-12-14 13:13] LABS: Glucose,Whole Blood 160 mg/dL (75-99)
--- NOTE | 2020-12-14 13:48 | P.PN ---
Subjective Progress Note Date: 12/14/20 Principal diagnosis: COVID-19 pneumonia This is a 50-year-old male patient with past medical history of diabetes mellitus type 2, hypertension, history of bilateral PEs on Eliquis, presented to the emergency department on 12/13/2020 for evaluation of shortness of breath, palpitations, fever, body aches, intermittent diarrhea and mild nausea. Patient was diagnosed with COVID 19. The onset of symptoms was 12 days ago. His son was diagnosed with COVID 19. Patient states his symptoms were progressively worse and not better. He has been battling a fever over the past 3-4 days. He feels more short of breath with exertion. He states he feels like all he wants to do is lay in bed. Patient lives in [facility], but he is a [place] citizen, and owns a vacation property in [place], where he was vacationing. Patient did not receive COVID-19 vaccine. On arrival to the emergency department his O2 sat is 92-94%. His chest x-ray shows some mild pulmonary interstitial infiltrates. Does have history of obstructive sleep apnea for which he wears a CPAP. His lab work showed normal white count of 5.1, hemoglobin of 15.5, lymphocyte count of 0.6, d-dimer was 0.76, sodium is 133, potassium is 3.7, chloride is 97, CO2 is 24, B1 is 20, creatinine 0.78, lactic acid was 1.2, AST was 79, ALT was 51, alkaline phosphatase was 71, troponin was 0.018, CRP was 4.1, proBNP was 284. Patient was started on Decadron 6 mg daily, vitamins C, D, and zinc. He is already on maintenance dose Eliquis 5 mg daily, he is on Ventolin and Symbicort, and he is receiving IV fluids at 75 ML per hour. Have a low-grade fever this morning with a temp of 100.5F, blood pressure stable, he is currently on his home CPAP, when he is on nasal cannula he is requiring 2 L of oxygen and his pulse ox is 94%. He denies any chest discomfort. On 12/14/2020 patient seen in follow-up on medical surgical floor. He states he is feeling much better today, breathing easier, he is currently on room air, with a pulse ox of 94-98%, his been afebrile, hemodynamically has been stable, he has been wearing his home CPAP at has home settings at bedtime. He thinks it has been helping him, occasional cough, no phlegm production, no chest discomfort. He remains on Decadron 6 mg daily, COVID-19 vitamins, he was out of the window for Remdesivir. Today's labs have been reviewed, BNP was done, showing sodium 136, the rest of electrolytes were within normal limits, B1 is 23 creatinine 0.92. He had no nausea vomiting. Abdomen is soft, he is tolerating oral diet. He is on oral anticoagulation and form of Eliquis for history of bilateral PEs. No acute events overnight. Objective - Vital Signs Vital signs: Vital Signs Temp 97.4 F L 12/14/20 08:00 Pulse 88 12/14/20 08:00 Resp 17 12/14/20 08:00 BP 120/90 12/14/20 08:00 Pulse Ox 94 L 12/14/20 10:29 Intake & Output 12/13/20 12/14/20 12/14/20 18:59 06:59 18:59 Weight 145.15 kg Other: Voiding Method Toilet Toilet # Voids 1 1 - Exam GENERAL EXAM: Alert, very pleasant, 50-year-old white male, room air with a pulse ox of 94-98% comfortable in no apparent distress. HEAD: Normocephalic/atraumatic. EYES: Normal reaction of pupils, equal size. Conjunctiva pink, sclera white. NOSE: Clear with pink turbinates. THROAT: No erythema or exudates. NECK: No masses, no JVD, no thyroid enlargement, no adenopathy. CHEST: No chest wall deformity. Symmetrical expansion. LUNGS: Equal air entry with no crackles, wheeze, rhonchi or dullness. CVS: Regular rate and rhythm, normal S1 and S2, no gallops, no murmurs, no rubs ABDOMEN: Soft, nontender. No hepatosplenomegaly, normal bowel sounds, no guarding or rigidity. EXTREMITIES: No clubbing, no edema, no cyanosis, 2+ pulses and upper and lower extremities. MUSCULOSKELETAL: Muscle strength and tone normal. SPINE: No scoliosis or deformity SKIN: No rashes CENTRAL NERVOUS SYSTEM: Alert and oriented -3. No focal deficits, tone is normal in all 4 extremities. PSYCHIATRIC: Alert and oriented -3. Appropriate affect. Intact judgment and insight. - Labs CBC & Chem 7: 12/13/20 01:50 12/14/20 05:41 Labs: Abnormal Lab Results - Last 24 Hours (Table) 12/13/20 12/13/20 12/13/20 Range/Units 05:50 17:18 20:19 Sodium (137-145) mmol/L BUN (9-20) mg/dL Glucose (74-99) mg/dL POC Glucose (mg/dL) 111 H 182 H (75-99) mg/dL Hemoglobin A1c 6.5 H (4.0-6.0) % 12/14/20 12/14/20 12/14/20 Range/Units 05:41 08:17 13:11 Sodium 136 L (137-145) mmol/L BUN 23 H (9-20) mg/dL Glucose 130 H (74-99) mg/dL POC Glucose (mg/dL) 134 H 160 H (75-99) mg/dL Hemoglobin A1c (4.0-6.0) % Assessment and Plan Plan: Assessment: #1. Acute hypoxic respiratory failure related to COVID-19 pneumonia, onset of symptoms was 12 days prior to presentation to the emergency department. Out of the window for Remdesivir. Currently on Decadron, on home dose Eliquis, and vit warren C, D and zinc. Patient is not vaccinated for COVID-19 #2. History of diabetes mellitus type 2 #3. Morbid obesity with BMI of 43.4 kg/m #4. History of bilateral PEs on Eliquis #5. Obstructive sleep apnea on CPAP #6. Spinal stenosis with left foot drop #7. Hypertension #8. Lifetime nonsmoker Plan: Patient is currently on room air Maintaining O2 saturations 94-98% No worsening dyspnea or hypoxia He was outside the window for Remdesivir Vital signs have been stable Increase activity as tolerated He stable for discharge from pulmonary perspective He was instructed to come back for reevaluation with worsening of shortness of breath or worsening of hypoxia He will be sent home on oral Decadron, COVID-19 vitamins, and he is to continue oral anticoagulation for previous history of pulmonary emboli. Can resume his maintenance inhalers Outpatient follow-up with Dr. Martinez in the office in 7-10 days I performed a history & physical examination of the patient and discussed their management with my nurse practitioner, Shira Zhao. I reviewed the nurse practitioner's note and agree with the documented findings and plan of care. Lung sounds are positive for diminished breath sounbds throughout the lung [place]. The findings and the impression was discussed with the patient. I attest to the documentation by the nurse practitioner. Time with Patient: Less than 30
== END 2020-12-14 13:40 | disposition home or self-care (01) | DRG 177 ==
LOC: EC 01:19 → 4SSUR 04:24 → 6NMEDSUR 16:03
PROVIDERS: ADMIT Internal Medicine; ATTEND Internal Medicine
PROC: 3E0F7SF Introduction of Other Gas into Respiratory Tract, Via Natural or Artificial Opening (ICD-10-PCS; principal; 2020-12-13)
DX: U07.1 COVID-19 (principal); J96.01 Acute respiratory failure with hypoxia; J12.82 Pneumonia due to coronavirus disease 2019; Z68.41 Body mass index [BMI] 40.0-44.9, adult; M48.00 Spinal stenosis, site unspecified; M21.372 Foot drop, left foot; I48.91 Unspecified atrial fibrillation; I10 Essential (primary) hypertension; G47.33 Obstructive sleep apnea (adult) (pediatric); E78.5 Hyperlipidemia, unspecified; E66.01 Morbid (severe) obesity due to excess calories; E11.9 Type 2 diabetes mellitus without complications; Z79.84 Long term (current) use of oral hypoglycemic drugs; Z79.890 Hormone replacement therapy; Z79.899 Other long term (current) drug therapy; Z86.711 Personal history of pulmonary embolism; Z79.01 Long term (current) use of anticoagulants
CPT/HCPCS: 36415; 71045; 80053; 82728; 83036; 83605; 83615; 83735; 83880; 84145; 84484; 85025; 85379; 85610; 85730; 86140; 93005